=== PATIENT | female | born 1995 | race Caucasian/White ===

== ENCOUNTER 2019-01-31 11:37 | Emergency (ER) | payer MEDICAID ==
[2019-01-31] MEDS ORDERED: HYDROCODONE/APAP 10/325 TAB ONE (12:35)
[2019-01-31] MEDS ORDERED: TETANUS & DIPHTHERIA TOX,ADULT 0.5 ML VIAL ONE (12:50)
[2019-01-31] MEDS ORDERED: LIDOCAINE 1% 20 ML MDV ONE (13:26)
[2019-01-31] MEDS ORDERED: ONDANSETRON 4 MG (ODT) TAB ONE (13:34)
--- NOTE | 2019-01-31 14:10 | RAD REPORT ---
EXAM DESCRIPTION: RAD - Wrist Left 2 View - 01/31/2019 1:21 pm CLINICAL HISTORY: Laceration, left wrist pain COMPARISON: None. FINDINGS: No fracture or acute bony finding. No air or foreign body in the soft tissues.
--- NOTE | 2019-01-31 14:17 | ER ---
Nurse's Notes [facility] Name: Stephanie South Age: 23 yrs Sex: Female : 1995 Arrival Date: 01/31/2019 Time: 11:40 Bed 23 Private MD: Diagnosis: Superficial laceration of left wrist Presentation: 01/31 11:44 Presenting complaint: Patient states: 1.5 inch laceration to L wrist sustained while ss washing glass dish. No active bleeding noted at this time. Transition of care: patient was not received from another setting of care. Complicating Factors: There are no complicating factors for this patient. Onset of symptoms was January 31, 2019. Risk Assessment: Do you want to hurt yourself or someone else? Patient reports no desire to harm self or others. Initial Sepsis Screen: Does the patient meet any 2 criteria? No. Patient's initial sepsis screen is negative. Does the patient have a suspected source of infection? No. Patient's initial sepsis screen is negative. Care prior to arrival: pressure dressing placed. 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 - Social history:: Smoking status: Patient/guardian denies using tobacco. - Family history:: not pertinent. - Ebola Screening: : Patient denies exposure to infectious person Patient denies travel to an Ebola-affected area in the 21 days before illness onset. - Hospitalizations: : No recent hospitalization is reported. Screenin:47 Abuse screen: Denies threats or abuse. Denies injuries from another. Nutritional ss screening: No deficits noted. Tuberculosis screening: Never had TB. Fall Risk None identified. Assessment: 11:47 General: Appears uncomfortable, Behavior is cooperative, anxious, Denies fever, feeling ss ill. Pain: Complains of pain in left wrist Pain currently is 7 out of 10 on a pain scale. Quality of pain is described as tender, Pain began 30 min ago. Is continuous. Neuro: Level of Consciousness is awake, alert, obeys commands, Oriented to person, place, time, situation. Cardiovascular: Capillary refill < 3 seconds in bilateral fingers Patient's skin is warm and dry. Pulses are palpable in right radial artery and left radial artery. Respiratory: Airway is patent Respiratory effort is even, unlabored, Respiratory pattern is regular, symmetrical. GI: No deficits noted. EENT: Nares are clear. Derm: Skin is intact, is healthy with good turgor, Skin is dry, Skin is pink, warm \T\ dry. normal. Musculoskeletal: Circulation, motion, and sensation intact. Range of motion: intact in all extremities, Swelling absent. Injury Description: Laceration sustained to left wrist is 2.6 to 7.5 cm long, was sustained less than 30 minutes ago. Vital Signs: 11:45 BP 110 / 59; Pulse 75; Resp 14; Temp 98.4(TE); Pulse Ox 99% on R/A; Weight 52.16 kg; ss Height 4 ft. 11 in. (149.86 cm); 14:22 BP 123 / 78; Pulse 85; Resp 18; Temp 98; Pulse Ox 100% on R/A; mg2 11:45 Body Mass Index 23.23 (52.16 kg, 149.86 cm) ED Course: 11:40 Patient arrived in ED. aa5 11:41 Alfie Baker MD is Attending Physician. rn 11:43 Erinn Ware, BRITTA is Primary Nurse. 11:45 Triage completed. ss 11:45 Arm band placed on right wrist. ss 11:47 Patient has correct armband on for positive identification. Bed in low position. Call ss light in reach. 13:21 XRAY Wrist LEFT 2 view In Process Unspecified. EDMS 13:52 Assist provider with laceration repair on left wrist that was between 2.6 to 7.5 cm mg2 using sutures. 14:00 Assist provider with laceration repair on left wrist that was between 2.6 to 7.5 cm mg2 using sutures. Set up tray. Performed by Jude Harris NP Patient tolerated well. Patient did not have IV access during this emergency room visit. 14:10 Dressings: Kerlix X 1; left hand and left wrist non-adherent dressing x 1 left hand and jp3 left wrist. Wound care: to laceration located on left hand and left wrist was cleaned with Rivka irrigated with normal saline, dressed with Neosporin, Patient tolerated well. Administered Medications: 12:39 Drug: [place] 10 mg-325 mg 1 tabs Route: PO; mg2 13:34 Drug: Tetanus-Diphtheria Toxoid Adult 0.5 ml {Microsoft Bi Developer: Zoop. Exp: mg2 08/16/2020. Lot #: [id number]. } Route: IM; Site: right deltoid; 13:34 Drug: Lidocaine (1 %) 5 ml {Note: given by the provider.} Volume: 5 ml; Route: mg2 Infiltration; 13:35 Drug: Zofran 4 mg Route: PO; mg2 Outcome: 14:17 Discharge ordered by . rn 14:22 Discharged to home ambulatory, with family. mg2 14:22 Condition: stable 14:22 Discharge instructions given to patient, family, Instructed on discharge instructions, follow up and referral plans. wound care, Demonstrated understanding of instructions, follow-up care, wound care. 14:24 Patient left the ED. mg2 Signatures: Dispatcher [employer] EDMS Alfie Baker MD MD rn Calderon, Audri RN RN aa5 Erinn Ware RN RN ss Rome Garibay RN RN mg2 Payam Laurent jp3
--- NOTE | 2019-01-31 14:18 | EDPHYS ---
Physician Documentation [facility] Name: Stephanie South Age: 23 yrs Sex: Female : 1995 Arrival Date: 01/31/2019 Time: 11:40 Bed 23 Private MD: ED Physician Alfie Baker HPI: 01/31 11:43 This 23 yrs old Female presents to ER via Unassigned with complaints of rn laceration left wrist. 11:43 The patient has a laceration occurred at home, and there are no complicating factors. rn The laceration(s) is(are) located on the left wrist. Onset: The symptoms/episode began/occurred just prior to arrival. The patient has not experienced similar symptoms in the past. Reports washing dishes, accidentally cut left wrist with glass, does not feel like anything in wound, reports pain with movement. Unknown tetanus.. 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 - Social history:: Smoking status: Patient/guardian denies using tobacco. - Family history:: not pertinent. - Ebola Screening: : Patient denies exposure to infectious person Patient denies travel to an Ebola-affected area in the 21 days before illness onset. - Hospitalizations: : No recent hospitalization is reported. ROS: 11:43 Constitutional: Negative for fever, chills, and weight loss, MS/Extremity: + laceration rn left wrist Neuro: Negative for weakness, numbness, tingling Exam: 11:43 Constitutional: This is a well developed, well nourished patient who is awake, alert, rn and in no acute distress. On phone when I arrive, sitting upright. Skin: Warm, dry, 3 cm perpendicular laceration left wrist, superficial. MS/ Extremity: Pulses equal, no cyanosis. Neurovascular intact. Initially had difficulty extending fingers, eventually after coaching and reassurance, able to fully extend fingers and flex fingers, no evidence of tendon disruption, fascia appears intact. No active bleeding. Vital Signs: 11:45 BP 110 / 59; Pulse 75; Resp 14; Temp 98.4(TE); Pulse Ox 99% on R/A; Weight 52.16 kg; ss Height 4 ft. 11 in. (149.86 cm); 14:22 BP 123 / 78; Pulse 85; Resp 18; Temp 98; Pulse Ox 100% on R/A; mg2 11:45 Body Mass Index 23.23 (52.16 kg, 149.86 cm) ss Laceration: 13:56 Wound Repair of 4cm ( 1.6in ) subcutaneous laceration to palmar aspect of left forearm. pm1 Linear shaped.. Distal neuro/vascular/tendon intact. Anesthesia: Local anesthetic administered with 4 mls of 1% lidocaine. Wound prep: Extensive cleansing with hibiclenz by me, Wound irrigation with saline, Wound explored extensively, Copious irrigation. Skin closed with 6 4-0 Prolene using simple sutures and sterile technique. Dressed with Neosporin, 4x4's. Patient tolerated well. MDM: 11:41 Patient medically screened. rn 14:16 Differential diagnosis: superficial laceration. Data reviewed: vital signs, nurses rn notes, radiologic studies, plain films, and as a result, I will discharge patient. Counseling: I had a detailed discussion with the patient and/or guardian regarding: the historical points, exam findings, and any diagnostic results supporting the discharge/admit diagnosis, radiology results, the need for outpatient follow up, to return to the emergency department if symptoms worsen or persist or if there are any questions or concerns that arise at home. Response to treatment: the patient's symptoms have markedly improved after treatment, and as a result, I will discharge patient. Special discussion: I discussed with the patient/guardian in detail that at this point there is no indication for admission to the hospital. It is understood, however, that if the symptoms persist or worsen the patient needs to return immediately for re-evaluation. 01/31 11:42 Order name: XRAY Wrist LEFT 2 view; Complete Time: 14:13 rn 01/31 12:57 Order name: Prolene, Sutures; Complete Time: 13:21 pm1 01/31 12:57 Order name: Dressing - Wound; Complete Time: 13:21 pm1 01/31 12:57 Order name: Gloves, Sterile; Complete Time: 13:21 pm1 01/31 12:57 Order name: Setup Suture Tray; Complete Time: 13:21 pm1 Administered Medications: 12:39 Drug: [place] 10 mg-325 mg 1 tabs Route: PO; mg2 13:34 Drug: Tetanus-Diphtheria Toxoid Adult 0.5 ml {Supervisor Bottle House Cleaners: [employer]. Exp: mg2 08/16/2020. Lot #: [id number]. } Route: IM; Site: right deltoid; 13:34 Drug: Lidocaine (1 %) 5 ml {Note: given by the provider.} Volume: 5 ml; Route: mg2 Infiltration; 13:35 Drug: Zofran 4 mg Route: PO; mg2 Disposition: 16:07 Co-signature as Attending Physician, Alfie Baker MD. rn Disposition: 01/31/19 14:17 Discharged to Home. Impression: Superficial laceration of left wrist. - Condition is Stable. - Discharge Instructions: Laceration Care, Adult. - Medication Reconciliation Form, Thank You Letter, Antibiotic Education, Prescription Opioid Use form. - Follow up: Emergency Department; When: 14 days; Reason: Staple/Suture removal. - Problem is new. - Symptoms have improved. Signatures: Dispatcher [employer] EDMS Alfie Baker MD MD rn Smirch, Shelby, RN RN ss Jude Harris, ANNELISE HAND TRIMMER pm1 Rome Garibay RN RN mg2 Corrections: (The following items were deleted from the chart) 14:24 14:17 01/31/2019 14:17 Discharged to Home. Impression: Superficial laceration of left mg2 wrist. Condition is Stable. Forms are Medication Reconciliation Form, Thank You Letter, Antibiotic Education, Prescription Opioid Use. Follow up: Emergency Department; When: 14 days; Reason: Staple/Suture removal. Problem is new. Symptoms have improved. rn
[2019-01-31 15:04] VITALS: BP 123/78; TEMP 98; O2SAT 100
== END 2019-01-31 14:24 | disposition home or self-care (01) ==
LOC: ER 11:37
PROC: 0JQH0ZZ Repair Left Lower Arm Subcutaneous Tissue and Fascia, Open Approach (ICD-10-PCS; principal; 2019-01-31)
DX: S61.512A Laceration without foreign body of left wrist, initial encounter (principal); W25.XXXA Contact with sharp glass, initial encounter; Y93.G1 Activity, food preparation and clean up; Y92.000 Kitchen of unspecified non-institutional (private) residence as the place of occurrence of the external cause; Z23 Encounter for immunization
CPT/HCPCS: 90471; 90714; 99284

== ENCOUNTER 2019-02-16 10:26 | Emergency (ER) | payer MEDICAID ==
--- OUTSIDE RECORDS SUMMARY | 2019-02-16 10:27 | XMS REPORT ---
:1995 [facility] Address [address] [place] [address] Dr. Mcdonald [address] [place] [id number] Care Team Providers Name Role Phone Unavailable Unavailable Unavailable Problems This patient has no known problems. Allergies, Adverse Reactions, Alerts This patient has no known allergies or adverse reactions. Medications This patient has no known medications.
--- NOTE | 2019-02-16 10:55 | EDPHYS ---
Physician Documentation [facility] Name: Stephanie South Age: 23 yrs Sex: Female : 1995 Arrival Date: 02/16/2019 Time: 10:29 Bed 11 Private MD: ED Physician Edvin Gomez HPI: 02/16 10:52 This 23 yrs old Female presents to ER via Ambulatory with complaints of pm1 Suture Removal. 10:52 The patient has sutures on the left wrist. Previous treatment: The patient was pm1 initially treated on January 31, 2019, the care was rendered at [facility], Treatment type: The patient's original treatment included sutures. Sutures/fortino progress: The patient has no c/o's. The wound is well-healing with no redness, swelling, discharge, or dehiscence reported. The patient has not experienced similar symptoms in the past. Laceration to left wrist when cleaning dishes. 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 - Social history:: Smoking status: Patient/guardian denies using tobacco. - Ebola Screening: : Patient negative for fever greater than or equal to 101.5 degrees Fahrenheit, and additional compatible Ebola Virus Disease symptoms Patient denies exposure to infectious person Patient denies travel to an Ebola-affected area in the 21 days before illness onset No symptoms or risks identified at this time. ROS: 10:52 Constitutional: Negative for fever, chills, and weight loss, Cardiovascular: Negative pm1 for chest pain, palpitations, and edema, Respiratory: Negative for shortness of breath, cough, wheezing, and pleuritic chest pain, Back: Negative for injury and pain, MS/Extremity: Negative for injury and deformity, Skin: Negative for injury, rash, and discoloration, Neuro: Negative for headache, weakness, numbness, tingling, and seizure. 10:52 All other systems are negative. Exam: 10:52 Constitutional: This is a well developed, well nourished patient who is awake, alert, pm1 and in no acute distress. Head/Face: Normocephalic, atraumatic. Neck: Trachea midline, no thyromegaly or masses palpated, and no cervical lymphadenopathy. Supple, full range of motion without nuchal rigidity, or vertebral point tenderness. No Meningismus. Chest/axilla: Normal chest wall appearance and motion. Nontender with no deformity. No lesions are appreciated. Cardiovascular: Regular rate and rhythm with a normal S1 and S2. No gallops, murmurs, or rubs. Normal PMI, no JVD. No pulse deficits. Respiratory: Lungs have equal breath sounds bilaterally, clear to auscultation and percussion. No rales, rhonchi or wheezes noted. No increased work of breathing, no retractions or nasal flaring. Back: No spinal tenderness. No costovertebral tenderness. Full range of motion. 10:52 Skin: Wound recheck: Suture laceration closure: the wound is healing well, the edges are well approximated, no evidence of dehiscence, no drainage, no erythema, no swelling. Vital Signs: 10:44 BP 104 / 79; Pulse 67; Resp 16; Temp 98.0; Pulse Ox 97% on R/A; iw Procedures: 10:52 Suture/Staple removal: Removed 6 sutures, from left wrist, site appears well healed, pm1 Patient tolerated well, steri-strips applied to wound closure after removal of sutures. MDM: 10:38 Patient medically screened. pm1 10:52 Data reviewed: vital signs. Data interpreted: Pulse oximetry: on room air is 97 %. pm1 Interpretation: normal. 10:52 Counseling: I had a detailed discussion with the patient and/or guardian regarding: the pm1 historical points, exam findings, and any diagnostic results supporting the discharge/admit diagnosis, the need for outpatient follow up, to return to the emergency department if symptoms worsen or persist or if there are any questions or concerns that arise at home. Administered Medications: No medications were administered Disposition: 11:25 Co-signature as Attending Physician, Edvin Gomez MD I agree with the assessment and kdr plan of care. Disposition: 02/16/19 10:55 Discharged to Home. Impression: Encounter for removal of sutures. - Condition is Stable. - Discharge Instructions: Suture Removal, Care After. - Medication Reconciliation Form, Thank You Letter, Antibiotic Education, Prescription Opioid Use form. - Follow up: Emergency Department; When: As needed; Reason: Worsening of condition. Follow up: Private Physician; When: As needed; Reason: Recheck today's complaints, Continuance of care, Re-evaluation by your physician. - Problem is new. - Symptoms have improved. Signatures: Edvin Gomez MD MD kdr Gabriela Denton RN RN iw Jude Harris NP CUT AND COVER LINE WORKER pm1 Corrections: (The following items were deleted from the chart) 11:01 10:55 02/16/2019 10:55 Discharged to Home. Impression: Encounter for removal of iw sutures. Condition is Stable. Forms are Medication Reconciliation Form, Thank You Letter, Antibiotic Education, Prescription Opioid Use. Follow up: Emergency Department; When: As needed; Reason: Worsening of condition. Follow up: Private Physician; When: As needed; Reason: Recheck today's complaints, Continuance of care, Re-evaluation by your physician. Problem is new. Symptoms have improved. pm1
--- NOTE | 2019-02-16 10:55 | ER ---
Nurse's Notes [facility] Name: Stephanie South Age: 23 yrs Sex: Female : 1995 Arrival Date: 02/16/2019 Time: 10:29 Bed 11 Private MD: Diagnosis: Encounter for removal of sutures Presentation: 02/16 10:43 Presenting complaint: Patient states: sutures placed almost 2 weeks ago to left wrist, iw needs to be removed. Transition of care: patient was not received from another setting of care. Onset of symptoms was February 16, 2019. Risk Assessment: Do you want to hurt yourself or someone else? Patient reports no desire to harm self or others. Initial Sepsis Screen: Does the patient meet any 2 criteria? No. Patient's initial sepsis screen is negative. Does the patient have a suspected source of infection? No. Patient's initial sepsis screen is negative. Care prior to arrival: None. 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 - Social history:: Smoking status: Patient/guardian denies using tobacco. - Ebola Screening: : Patient negative for fever greater than or equal to 101.5 degrees Fahrenheit, and additional compatible Ebola Virus Disease symptoms Patient denies exposure to infectious person Patient denies travel to an Ebola-affected area in the 21 days before illness onset No symptoms or risks identified at this time. Screenin:45 Abuse screen: Denies threats or abuse. Denies injuries from another. Nutritional iw screening: No deficits noted. Tuberculosis screening: No symptoms or risk factors identified. Fall Risk None identified. Assessment: 10:45 General: Appears in no apparent distress. Behavior is calm, cooperative. Pain: Denies iw pain. Neuro: Level of Consciousness is awake, alert, obeys commands, Oriented to person, place, time, situation, Moves all extremities. Full function. Cardiovascular: Patient's skin is warm and dry. Respiratory: Respiratory effort is even, unlabored. Derm: Skin is intact, is healthy with good turgor. Vital Signs: 10:44 BP 104 / 79; Pulse 67; Resp 16; Temp 98.0; Pulse Ox 97% on R/A; iw ED Course: 10:29 Patient arrived in ED. mr 10:35 Gabriela Denton, BRITTA is Primary Nurse. iw 10:38 Jude Harris NP is PHCP. pm1 10:38 Edvin Gomez MD is Attending Physician. pm1 10:44 Triage completed. iw 10:45 Arm band placed on. iw 10:45 No provider procedures requiring assistance completed. Patient did not have IV access iw during this emergency room visit. 11:00 Patient has correct armband on for positive identification. iw Administered Medications: No medications were administered Outcome: 10:55 Discharge ordered by . pm1 11:00 Discharged to home ambulatory. iw 11:00 Condition: good 11:00 Discharge instructions given to patient, Instructed on discharge instructions, follow up and referral plans. wound care, Demonstrated understanding of instructions, follow-up care, wound care. 11:01 Patient left the ED. iw Signatures: Doris Delgado mr Gabriela Denton, BRITTA RN iw Jude Harris NP MACHINE STRAW HAT PRESSER pm1
[2019-02-16 12:21] VITALS: BP 104/79; TEMP 98; O2SAT 97
== END 2019-02-16 11:01 | disposition home or self-care (01) ==
LOC: ER 10:26
DX: Z48.02 Encounter for removal of sutures (principal)
CPT/HCPCS: 99281

== ENCOUNTER 2019-09-15 14:09 | Emergency (ER) | payer MEDICAID, OTHER ==
--- OUTSIDE RECORDS SUMMARY | 2019-09-15 14:12 | XMS REPORT | Continuity of Care Document ---
:1995 Author Organization [facility] t Address [address] [place] [address] Care Team Providers Name Role Phone Doctor Unassigned, Name Attending Clinician Unavailable 5, [facility] Us Room Attending Clinician Unavailable Jordan Young Attending Clinician Problems This patient has no known problems. Allergies, Adverse Reactions, Alerts This patient has no known allergies or adverse reactions. Medications This patient has no known medications. Procedures This patient has no known procedures. 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
--- OUTSIDE RECORDS SUMMARY | 2019-09-15 14:12 | XMS REPORT | Summary of Care ---
:1995 Author Organization [facility] - Health Address [address] [place] [address] Care Team Providers Name Role Phone Kimberly Insurance [employer] Jordan Cuellar VERONICA Primary Care Provider Encounter Details Date Type Department Care Team Description 06/19/2019 Orders Only [facility] Doctor Unassigned, No [address] [facility] [place] [address] [address] [place] [address] Allergies No Known Allergiesdocumented as of this encounter (statuses as of 06/20/2019) Medications Medication Sig Dispensed Refills Start Date End Date Status vit Take 1 Packet by 30 Each 6 04/21/2017 Active 17-khoj-hdjsi-dha mouth daily. (SELECT-OB + DHA) 29 mg iron-1 mg -250 mg combo packIndications: Supervision of high risk , antepartum sucralfate (CARAFATE) 1 Take 1 tablet by 30 tablet 0 8 Active gram tabletIndications: mouth before Heartburn in meals and at in third trimester bedtime. PNV 67-iron ps-folate Take 1 tablet by 30 capsule 1 09/12/2017 Active no.1-dha (VITAFOL mouth daily. ULTRA) 29 mg iron- 1 mg-200 mg Cap ferrous sulfate 325 mg Take 1 tablet by 90 tablet 6 09/20/2017 Active (65 mg iron) mouth 3 (three) tabletIndications: times daily with Anemia of mother in meals. , antepartum vitamin w/FA Take 1 tablet by 100 tablet 3 10/08/2017 Active tablet mouth daily. docusate calcium 240 mg Take 1 capsule 60 capsule 1 10/08/2017 Active capsule by mouth once daily as needed for Constipation. ferrous sulfate 325 mg Take 1 tablet by 30 tablet 2 10/08/2017 Active (65 mg iron) tablet mouth daily. ibuprofen 600 mg tablet Take 1 tablet by 60 tablet 1 8 Active mouth every 6 (six) hours as needed for Pain (scale 1-3) or Pain (scale 4-6) (Pain). Take with food or milk. HYDROcodone-acetaminoph Take 1 tablet by 25 tablet 0 8 Active en 5-325 mg tablet mouth every 6 (six) hours as needed for Pain (scale 4-6) or Pain (scale 7-10). multivitamin Take 1 tablet by 90 tablet 3 03/22/2019 Active ( VITAMIN) mouth daily. tabletIndications: Supervision of high risk in first trimester ondansetron (ZOFRAN Take 1 tablet by 14 tablet 0 04/10/2019 Active ODT) 4 mg mouth every 8 disintegrating (eight) hours as tabletIndications: needed for Abdominal pain Nausea and affecting Vomiting (N/V). documented as of this encounter (statuses as of 06/20/2019) Active Problems Problem Noted Date Multiparity 03/22/2019 Supervision of high-risk 03/22/2019 History of pre-eclampsia 10/06/2017 History of induced hypertension 03/24/2017 History of depression 03/24/2017 with history of section, antepartum 03/24/2017 Overview: Due to failed IOL, low transverse incision x2 Estimated Date of Delivery Comments Yes 11/10/2019 Based on Ultrasound documented as of this encounter (statuses as of 06/20/2019) Resolved Problems Problem Noted Date Resolved Date 37 weeks gestation of 10/06/2017 03/22/19 20 Elevated BP without diagnosis of hypertension 10/06/2017 10/06/2017 Liveborn infant, of uriostegui , born in hospital by 10/06/2017 03/22/2019 delivery Supervision of high risk in third trimester 201703/22/2019 Overweight (BMI 25.0-29.9) 09/20/2017 03/22/2019 Anemia of mother in , antepartum 09/20/2017 03/22/2019 Heartburn in in third trimester 09/04/2017 03/22/2019 Pelvic cramping in antepartum period 04/21/201711/2017 Supervision of high risk , antepartum 03/24/2017 09/20/2017 PIH ( induced hypertension), third trimester 201503/24/2017 Failed induction of labor 10/28/2015 03/24/2017 38 weeks gestation of 10/26/2015 03/24/19 18 Elevated blood pressure affecting in third 016 03/24/2017 trimester, antepartum documented as of this encounter (statuses as of 06/20/2019) Immunizations Name Administration Dates Next Due Tdap 08/04/2017 documented as of this encounter Social History Tobacco Use Types Packs/Day Years Used Date Former Smoker Cigarettes 12 03/24/2002 - 0 03/24/2014 Smokeless Tobacco: Never Used Alcohol Use Drinks/Week oz/Week Comments No Estimated Date of Delivery Comments Yes 11/10/2019 Based on Ultrasound Sex Assigned at Date Recorded Not on file Job Start Date Occupation Industry Not on file Not on file Not on file Travel History Travel Start Travel End No recent travel history available. documented as of this encounter Last Filed Vital Signs Not on filedocumented in this encounter Plan of Treatment Health Maintenance Due Date Last Done Comments HPV VACCINES (1 - Female 2-dose 03/12/2020 Postponed from 2005 series) ( or Lucrecia astfeeding) INFLUENZA VACCINE (#1) 2020 Postponed from 11/11/2018 (Refused) PAP SMEAR 03/24/2020 03/24/2017 DTaP,Tdap,and Td Vaccines (2 - 08/05/2027 08/04/2017 Td) PNEUMOCOCCAL 0-64 YEARS COMBINED Aged Out No longer eligible based on SERIES patient's age to complete this topic documented as of this encounter Procedures Procedure Name Priority Date/Time Associated Diagnosis Comme nts AUTHORIZATION FOR RELEASE Routine 06/19/2019 12:01 AM OF PHI CDT documented in this encounter Results Not on filedocumented in this encounter Insurance Payer Benefit Plan / Subscriber ID Effective Phone Address T e Group Dates JILLIAN WALSH xxxxxxxxx 2019-Prese [address] [place] [id number] [place] MED[place], [place] documented as of this encounter Advance Directives Name Relationship Healthcare Agent Communication Relationship Blanche Lopez Mother Primary healthcare agent
[2019-09-15 14:43] LABS: Absolute Lymphocytes (CBC) 1.6 K/uL (0.7-4.9); Basophils % 0.5 % (0-1.3); Hematocrit 26.8 % (36.0-45.0); Lymphocytes % 21.6 % (15.3-44.8); MPV 8.8 fL (7.6-11.3); RBC Red Blood Cell Count 3.19 M/uL (3.86-4.86)
[2019-09-15 15:01] LABS: BUN Blood Urea Nitrogen 6 mg/dL (7-18); Bicarbonate 22 mmol/L (21-32); Glucose Level 106 mg/dL (74-106); Potassium 3.4 mmol/L (3.5-5.1); Sodium Level 140 mmol/L (136-145); Troponin (Emerg Dept Use Only) < 0.02 ng/mL (0.0-0.045)
[2019-09-15 15:08] LABS: Urine Blood NEGATIVE (NEG); Urine Glucose NEGATIVE (NEG); Urine Protein NEGATIVE (NEG); Urine Specific Gravity >1.030 (1.005-1.030); Urine pH 6.5 (5.0-7.0)
--- NOTE | 2019-09-15 16:01 | ER ---
Nurse's Notes [facility] Name: Stephanie South Age: 24 yrs Sex: Female : 1995 Arrival Date: 09/15/2019 Time: 14:10 Bed 4 Private MD: Diagnosis: Chest pain, unspecified Presentation: 09/14 14:10 Chief complaint: EMS states: Pt approx 7 months , c/o chest pain over the last ph few days that comes and goes, today started at around 1100 and did not go away, also reports slight SOB, hx of HTN during pregnancies, BP normal at 106 systolic, HR 104 sinus tach. Coronavirus screen: Patient denies a cough. Patient denies shortness of breath or difficulty breathing. Patient denies measured and/or subjective temperature greater than 100.4F prior to today's visit. Patient denies travel on a cruise ship or to a country the [facility] currently lists as an affected area. Patient denies contact with known and/or suspected case of COVID-19. Ebola Screen: No symptoms or risks identified at this time. Initial Sepsis Screen: Does the patient meet any 2 criteria? No. Patient's initial sepsis screen is negative. Does the patient have a suspected source of infection? No. Patient's initial sepsis screen is negative. Risk Assessment: Do you want to hurt yourself or someone else? Patient reports no desire to harm self or others. Onset of symptoms was September 15, 2019. 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 - Social history:: Smoking status: Patient denies any tobacco usage or history of. Screenin:15 Abuse screen: Denies threats or abuse. Denies injuries from another. Nutritional ph screening: No deficits noted. Tuberculosis screening: No symptoms or risk factors identified. Fall Risk None identified. Assessment: 15:12 General: Appears in no apparent distress. comfortable, well groomed, Behavior is calm, ph cooperative, appropriate for age, Denies fever, feeling ill. Pain: Complains of pain in mid-sternal area Pain does not radiate. Pain began 2-3 days ago. Is intermittent. Neuro: Level of Consciousness is awake, alert, obeys commands, Oriented to person, place, time, Appropriate for age. Cardiovascular: Reports chest pain, shortness of breath, Denies lightheadedness, nausea, palpitations, vomiting. Respiratory: Reports shortness of breath when lying down Airway is patent Respiratory effort is even, unlabored, Respiratory pattern is regular, symmetrical. GI: Abdomen is round Patient currently denies abdominal pain, nausea, vomiting. Derm: Skin is intact, is healthy with good turgor, Skin is pink, warm \T\ dry. 16:15 Reassessment: Patient appears in no apparent distress at this time. Patient is alert, ca1 oriented x 3, equal unlabored respirations, skin warm/dry/pink. Vital Signs: 14:10 BP 110 / 68; Pulse 97; Resp 18; Pulse Ox 98% on R/A; ph 15:17 BP 95 / 54; Pulse 86; Resp 18; Pulse Ox 98% on R/A; ph 16:06 BP 92 / 54; Pulse 78; Resp 15 S; Pulse Ox 95% on R/A; ca1 Vitals: 14:42 Heart Tones 134. ca1 ED Course: 14:10 Patient arrived in ED. ph 14:12 Jude Harris NP is PHCP. pm1 14:12 Nina Velasco MD is Attending Physician. pm1 14:14 Triage completed. ph 14:15 Arm band placed on Patient placed in an exam room, on a stretcher, on international trade manager, ph on pulse oximetry. EKG completed in triage. Results shown to MD. 14:15 Patient has correct armband on for positive identification. Placed in gown. Bed in low ph position. Call light in reach. Side rails up X 1. tire mold tester on. Pulse ox on. NIBP on. Door closed. Warm blanket given. 14:16 Patient maintains SpO2 saturation greater than 95% on room air. ph 14:27 Maintain EMS IV. Dressing intact. Good blood return noted. Site clean \T\ dry. Gauge \T\ ca 1 site: g20 LAC. 14:34 Initial lab(s) drawn, by me, sent to lab. ca1 14:44 Yasmine Farah, RN is Primary Nurse. ph 16:10 No provider procedures requiring assistance completed. IV discontinued, intact, ca1 bleeding controlled, No redness/swelling at site. Pressure dressing applied. Administered Medications: No medications were administered Outcome: 16:00 Discharge ordered by . pm1 16:15 Discharged to home ambulatory. ca1 16:15 Condition: stable 16:15 Discharge instructions given to patient, Instructed on discharge instructions, follow up and referral plans. Demonstrated understanding of instructions, follow-up care. 16:15 Patient left the ED. ca1 Signatures: Yasmine Farah, RN RN ph Jude Harris, FUR FINISHER FUR FINISHER pm1 Carie Handy RN RN ca1
--- NOTE | 2019-09-15 16:01 | EDPHYS ---
Physician Documentation [facility] Name: Stephanie South Age: 24 yrs Sex: Female : 1995 Arrival Date: 09/15/2019 Time: 14:10 Bed 4 Private MD: ED Physician Nina Velasco HPI: 09/14 14:47 This 24 yrs old Female presents to ER via EMS with complaints of Chest Pain. pm1 14:47 The patient or guardian reports chest pain that is located primarily in the mid-sternal pm1 area. The pain does not radiate. Associated signs and symptoms: The patient has no apparent associated signs or symptoms, Pertinent negatives: abdominal pain, cough, diaphoresis, dizziness, headache, nausea, shortness of breath, vomiting. The chest pain is described as sharp. Duration: The patient or guardian reports multiple episodes, that have now resolved. Modifying factors: The symptoms are alleviated by not taking in deep breaths when present and changing positions when lying down. the symptoms are aggravated by deep breath, lying down flat. Severity of pain: in the emergency department the pain has resolved. EMS care prior to arrival includes: aspirin, 324 mg. Patient is 7 months . A2. 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 - Social history:: Smoking status: Patient denies any tobacco usage or history of. ROS: 14:47 Constitutional: Negative for fever, chills, and weight loss, Eyes: Negative for injury, pm1 pain, redness, and discharge, ENT: Negative for injury, pain, and discharge, Neck: Negative for injury, pain, and swelling. 14:47 Respiratory: Negative for shortness of breath, cough, wheezing, and pleuritic chest pain, Abdomen/GI: Negative for abdominal pain, nausea, vomiting, diarrhea, and constipation, Back: Negative for injury and pain, : Negative for injury, bleeding, discharge, and swelling, MS/Extremity: Negative for injury and deformity, Skin: Negative for injury, rash, and discoloration, Neuro: Negative for headache, weakness, numbness, tingling, and seizure. 14:47 Cardiovascular: Positive for chest pain, Negative for edema, palpitations. Exam: 14:47 Constitutional: This is a well developed, well nourished patient who is awake, alert, pm1 and in no acute distress. Head/Face: Normocephalic, atraumatic. Chest/axilla: Normal chest wall appearance and motion. Nontender with no deformity. No lesions are appreciated. Cardiovascular: Regular rate and rhythm with a normal S1 and S2. No gallops, murmurs, or rubs. Normal PMI, no JVD. No pulse deficits. Respiratory: Lungs have equal breath sounds bilaterally, clear to auscultation and percussion. No rales, rhonchi or wheezes noted. No increased work of breathing, no retractions or nasal flaring. 14:47 Back: No spinal tenderness. No costovertebral tenderness. Full range of motion. Skin: Warm, dry with normal turgor. Normal color with no rashes, no lesions, and no evidence of cellulitis. MS/ Extremity: Pulses equal, no cyanosis. Neurovascular intact. Full, normal range of motion. 14:47 Abdomen/GI: Inspection: gravid appearance, is noted, Palpation: abdomen is soft and non-tender, in all quadrants. 14:47 Neuro: Exam negative for acute changes, Orientation: is normal, Motor: is normal, moves all fours. Vital Signs: 14:10 BP 110 / 68; Pulse 97; Resp 18; Pulse Ox 98% on R/A; ph 15:17 BP 95 / 54; Pulse 86; Resp 18; Pulse Ox 98% on R/A; ph 16:06 BP 92 / 54; Pulse 78; Resp 15 S; Pulse Ox 95% on R/A; ca1 MDM: 14:12 Patient medically screened. pm1 14:56 Data reviewed: vital signs. Data interpreted: Pulse oximetry: on room air is 98 %. pm1 Interpretation: normal. 15:26 ED course: Patient with known history of anemia. Does not appear to be iron deficiency pm1 related but likely from . MCV and MCHC are WNL. Patient had labs drawn last week by ob and recommended keeping appointment for follow up next week. 15:59 Counseling: I had a detailed discussion with the patient and/or guardian regarding: the pm1 historical points, exam findings, and any diagnostic results supporting the discharge/admit diagnosis, lab results, the need for outpatient follow up, an OB/Gyne specialist, to return to the emergency department if symptoms worsen or persist or if there are any questions or concerns that arise at home. 09/14 14:26 Order name: Basic Metabolic Panel; Complete Time: 15:01 pm1 09/14 14:26 Order name: CBC with Diff; Complete Time: 14:56 pm1 09/14 14:26 Order name: Troponin (emerg Dept Use Only); Complete Time: 15:01 pm1 09/14 14:26 Order name: EKG; Complete Time: 14:27 pm1 09/14 14:58 Order name: Urine Dipstick--Ancillary (enter results); Complete Time: 15:17 mt 09/14 14:58 Order name: Urine --Ancillary (enter results); Complete Time: 15:17 mt 09/14 14:26 Order name: Cardiac monitoring; Complete Time: 14:27 pm1 09/14 14:26 Order name: EKG - Nurse/Tech; Complete Time: 14:27 pm09/14 14:26 Order name: IV Saline Lock; Complete Time: 14:27 pm1 09/14 14:26 Order name: Labs collected and sent; Complete Time: 14:27 pm09/14 14:26 Order name: O2 Per Protocol; Complete Time: 14:27 pm1 09/14 14:26 Order name: O2 Sat Monitoring; Complete Time: 14:27 pm09/14 14:26 Order name: Urine Dipstick-Ancillary (obtain specimen); Complete Time: 14:59 pm1 09/14 14:26 Order name: FHT's; Complete Time: 14:42 pm1 Administered Medications: No medications were administered Disposition: 09/15/19 16:00 Discharged to Home. Impression: Chest pain, unspecified. - Condition is Stable. - Discharge Instructions: Nonspecific Chest Pain. - Medication Reconciliation Form, Thank You Letter, Antibiotic Education, Prescription Opioid Use form. - Follow up: Emergency Department; When: As needed; Reason: Worsening of condition. Follow up: Private Physician; When: 2 - 3 days; Reason: Recheck today's complaints, Continuance of care, Re-evaluation by your physician. - Problem is new. - Symptoms have improved. Signatures: Dispatcher [employer] Yasmine Cox, BRITTA RN ph Jude Harris, ENERGY RISK MANAGEMENT ANALYST ENERGY RISK MANAGEMENT ANALYST pm1 Carie Handy RN RN ca1 Corrections: (The following items were deleted from the chart) 16:15 16:00 09/15/2019 16:00 Discharged to Home. Impression: Chest pain, unspecified. ca1 Condition is Stable. Forms are Medication Reconciliation Form, Thank You Letter, Antibiotic Education, Prescription Opioid Use. Follow up: Emergency Department; When: As needed; Reason: Worsening of condition. Follow up: Private Physician; When: 2 - 3 days; Reason: Recheck today's complaints, Continuance of care, Re-evaluation by your physician. Problem is new. Symptoms have improved. pm1
[2019-09-15 16:22] VITALS: BP 92/54; O2SAT 95
== END 2019-09-15 16:15 | disposition home or self-care (01) ==
LOC: ER 14:09
DX: O26.892 Other specified pregnancy related conditions, second trimester (principal); O16.2 Unspecified maternal hypertension, second trimester; Z3A.00 Weeks of gestation of pregnancy not specified
CPT/HCPCS: 36415; 80048; 81003; 81025; 84484; 85025; 93005; 99285

== ENCOUNTER 2020-10-08 03:17 | Emergency (ER) | payer OTHER ==
--- OUTSIDE RECORDS SUMMARY | 2020-10-08 03:20 | XMS REPORT | Continuity of Care Document ---
:1995 Author Organization [facility] t Address [address] [place] [address] Care Team Providers Name Role Phone Armida Gomes Attending Clinician Doctor Unassigned, Name Attending Clinician Unavailable 5, [facility] Usg Room Attending Clinician Unavailable Jordan Young Attending Clinician Payers Payer Name Policy Type Policy Number Effective Date Expiration Date S ource Problems This patient has no known problems. Allergies, Adverse Reactions, Alerts Allergy Allergy Status Severity Reaction(s) Onset Inactive Treating Comm ents Source Name Type Date Date Clinician No Known DA Active [facility] [place] Medications This patient has no known medications. Procedures This patient has no known procedures. Encounters Start End Encounter Admission Attending Care Care Encounter Source Date/Time Date/Time Type Type Clinicians Facility Department ID 2019-10-20 2019-10-20 Emergency Edvin Toro [facility] [id number] 01:36:00 02:09:00 Armida Manriquez [id number] [place] [id number] [place] [id number] 2019-06-19 2019-06-19 Orders Doctor JOSEPH [id number] 00:00:00 00:00:00 Only Unassigned, EDUARDO [id number] [facility] [id number] [id number] 2019-04-26 2019-05-07 [employer] 5, [facility] [id number] 10:50:11 09:43:02 Visit Us Room [facility] [id number] CLIN[facility] [id number] 2019-05-07 2019-05-07 Abstract [place], [facility] [id number] 00:00:00 00:00:00 Cristina Ortega DECAL TRANSFERRER [id number] [facility] [id number] MATERNAL [id number] & CHILD [address] [place] [id number] Results Test Description Test Time Test Comments Results Result Comments Source HGB HCT 2019-11-05 05:00:00 Test Item Value Reference Range Interpretation Comme nts HEMOGLOBIN (test code = HGB) 5.9 g/dL 10.7-13.9 LL RESULTS CALLED TO Favian MccarthyREAD BACK & C ONFIRMED? Y.BY JOSE JUAN 0500.Results verified by rep eat analysis HEMATOCRIT (test code = HCT) 20.6 % 32.1-42.1 L Results verified by repeat analysis AG HEPATITIS B [id number] 11:45:00 Test Item Value Reference Range Interpretation Comments AG HEPATITIS B SURFACE (test code NONREACTIVE NONREACTIVE = HBSAG) IS CONSENT FORM SIGNED FOR HIV TESTING? YAB HEPATITIS C [id number] 11:45:00 Test Item Value Reference Range Interpretation Comments AB HEPATITIS C (test code = NONREACTIVE NONREACTIVE HCVAB) SIGNAL TO CUTOFF (test code = 0.18 <0.80 N CUTOFF) IS CONSENT FORM SIGNED FOR HIV TESTING? YAB [id number] 11:45:00 Test Item Value Reference Range Interpretation Comments AB TREPONEMA (test code = TREPAB) NONREACTIVE NONREACTIVE IS CONSENT FORM SIGNED FOR HIV TESTING? YAB HIV 1 11:45:00 Test Item Value Reference Range Interpretation Comments AB HIV 1 2 (test NONREACTIVE NONREACTIVE Done by S [employer] code = [id number]) 4th Gen HIV Ag/Ab Combo Screen IS CONSENT FORM SIGNED FOR HIV TESTING? YAG HEPATITIS B [id number] 09:20:00 Test Item Value Reference Range Interpretation Comments AG HEPATITIS B SURFACE (test code NONREACTIVE NONREACTIVE = HBSAG) IS CONSENT FORM SIGNED FOR HIV TESTING? YAB HEPATITIS C [id number] 09:20:00 Test Item Value Reference Range Interpretation Comments AB HEPATITIS C (test code = HCVAB) NONREACTIVE SIGNAL TO CUTOFF (test code = CUTOFF) <0.80 IS CONSENT FORM SIGNED FOR HIV TESTING? YAB [id number] 09:20:00 Test Item Value Reference Range Interpretation Comments AB TREPONEMA (test code = TREPAB) NONREACTIVE NONREACTIVE IS CONSENT FORM SIGNED FOR HIV TESTING? YAB HIV 1 09:20:00 Test Item Value Reference Range Interpretation Comments AB HIV 1 2 (test NONREACTIVE NONREACTIVE Done by S [employer] code = [id number]) 4th Gen HIV Ag/Ab Combo Screen IS CONSENT FORM SIGNED FOR HIV TESTING? YCOMPREHENSIVE METABOLIC [id number] 06:54:00 Test Item Value Reference Range Interpretation Comments SODIUM (test code = NA) 135 mEq/L 135-145 N POTASSIUM (test code = K) 3.9 mEq/L 3.5-5.0 N CHLORIDE (test code = CL) 103 mEq/L 100-115 N CARBON DIOXIDE (test code = CO2) 23 mEq/L 22-31 N ANION GAP (test code = GAP) 12.70 10-20 N GLUCOSE (test code = GLU) 87 mg/dL 65-110 N BLOOD UREA NITROGEN (test code = 10 mg/dL 7-18 N BUN) GLOMERULAR FILTRATION RATE (test 122 ml/min >60 N code = GFR) CREATININE (test code = CREAT) 0.6 mg/dL 0.5-1.0 N TOTAL PROTEIN (test code = PROT) 5.8 gm/dL 6.3-8.2 L ALBUMIN (test code = ALB) 2.4 gm/dL 3.4-4.8 L CALCIUM (test code = CA) 7.7 mg/dL 8.4-10.2 L BILIRUBIN TOTAL (test code = 0.7 mg/dL 0.2-1.0 N BILT) SGOT/AST (test code = AST) 21 units/L 15-37 N SGPT/ALT (test code = ALT) 15 units/L 12-78 N ALKALINE PHOSPHATASE TOTAL (test 111 units/L 46-116 N code = ALKP) CBC W/AUTO [id number] 06:19:00 Test Item Value Reference Range Interpretation Comments WHITE BLOOD CELL (test code = WBC) 9.6 K/mm3 6.6-12.1 N RED BLOOD CELL (test code = RBC) 3.32 M/mm3 3.45-5.01 L HEMOGLOBIN (test code = HGB) 7.6 g/dL 10.7-13.9 L HEMATOCRIT (test code = HCT) 26.0 % 32.1-42.1 L MEAN CELL VOLUME (test code = MCV) 78 fL 84.1-94.8 L MEAN CELL HGB (test code = MCH) 22.9 pg 27-35 L MEAN CELL HGB CONCETRATION (test 29.2 gm/dL 32.2-34.1 L code = MCHC) RED CELL DISTRIBUTION WIDTH (test 16.4 % 12.4-16.5 N code = RDW) PLATELET COUNT (test code = PLT) 155 K/mm3 133-385 N MEAN PLATELET VOLUME (test code = 11.1 fl 9.1-12.7 N MPV) NEUTROPHIL % (test code = NT%) 65.8 % 56.5-79.4 N LYMPHOCYTE % (test code = LY%) 22.1 % 14.3-34.3 N MONOCYTE % (test code = MO%) 7.9 % 5.1-10.4 N EOSINOPHIL % (test code = EO%) 1.6 % 0.1-3.0 N BASOPHIL % (test code = BA%) 0.4 % 0.1-1.0 N NEUTROPHIL # (test code = NT#) 6.3 K/mm3 LYMPHOCYTE # (test code = LY#) 2.1 K/mm3 MONOCYTE # (test code = MO#) 0.8 K/mm3 EOSINOPHIL # (test code = EO#) 0.15 K/mm3 BASOPHIL # (test code = BA#) 0.0 K/mm3 RBC MORPHOLOGY REQUIRED (test code NORMAL NORMAL = RBCM) PLATELET MORPHOLOGY REQUIRED (test NORMAL NORMAL code = PLTMR) COVID 19 Asymptomatic IH [id number] 17:18:00 Test Item Value Reference Range Interpretation Comments COVID 19 NEGATIVE NEGATIVE This test has b een Asymptomatic IH AG authorize d only for the (test code = detection ofpro teins from COVNONPUIAG) SARS-CoV-2, not for any other viruses orpathogens. N egative results should be treated as presumptive andconfirmed wi th a molecular assay , if necessary for patientmanageme nt. Negative result s do not rule out COVID- 19 andshould not b e used as the sole basis for treatment orpat ient management deci sions, including infec tion controldecision s. Negative result s should be considered i n thecontext of a patient's recent exposure s, history and thepresence of clinical signs and symptoms consis tent withCOVID-19. T his test has not been FD A cleared or approved; th e test hasbeen authori zed by FDA under an Emerge ncy Use Authorization(E UA) for use by laborato olivia certified under the CLIA thatmeet the re quirements to perform mode rate, high or waivedcomple xity tests. This arnold t is authorized for use at thePoint of Car e (POC), i.e., in patien t care settingsoperati ng under a CLIA Certificat e of Waiver, Certifi dandre ofCompliance, o r Certificate of Accreditation. This test is only authori zed for the duration of thedeclaration that circumstances e xist justifying theauthorizatio n of emergency use o f in vitro diagnostic test sfor detection and/o r diagnosis of CO VID-19 under Zpanzwy85 4(b)(1) of the Act, 21 U.S .C. 360bbb-3(b)(1), unless theauthorizatio n is terminated or r evoked sooner. AG HEPATITIS B [id number] 15:41:00 Test Item Value Reference Range Interpretation Comments AG HEPATITIS B SURFACE (test code NONREACTIVE NONREACTIVE = HBSAG) : *IS CONSENT FORM SIGNED FOR HIV TESTING? YAB [id number] 15:41:00 Test Item Value Reference Range Interpretation Comments AB TREPONEMA (test code = TREPAB) NONREACTIVE NONREACTIVE : *IS CONSENT FORM SIGNED FOR HIV TESTING? YAB HIV 1 15:41:00 Test Item Value Reference Range Interpretation Comments AB HIV 1 2 (test NONREACTIVE NONREACTIVE Done by Radha Padron code = [id number]) 4th Gen HIV Ag/Ab Combo Screen : *IS CONSENT FORM SIGNED FOR HIV TESTING? YAG HEPATITIS B [id number] 15:00:00 Test Item Value Reference Range Interpretation Comments AG HEPATITIS B SURFACE (test code NONREACTIVE NONREACTIVE = HBSAG) : *IS CONSENT FORM SIGNED FOR HIV TESTING? YAB [id number] 15:00:00 Test Item Value Reference Range Interpretation Comments AB TREPONEMA (test code = TREPAB) NONREACTIVE NONREACTIVE : *IS CONSENT FORM SIGNED FOR HIV TESTING? YAB HIV 1 15:00:00 Test Item Value Reference Range Interpretation Comments AB HIV 1 2 (test code = [id number]) NONREACTIVE : *IS CONSENT FORM SIGNED FOR HIV TESTING? YCBC W/AUTO [id number] 13:08:00 Test Item Value Reference Range Interpretation Comments WHITE BLOOD CELL (test code = WBC) 7.6 K/mm3 6.6-12.1 N RED BLOOD CELL (test code = RBC) 3.60 M/mm3 3.45-5.01 N HEMOGLOBIN (test code = HGB) 8.3 g/dL 10.7-13.9 L HEMATOCRIT (test code = HCT) 29.3 % 32.1-42.1 L MEAN CELL VOLUME (test code = MCV) 81 fL 84.1-94.8 L MEAN CELL HGB (test code = MCH) 23.1 pg 27-35 L MEAN CELL HGB CONCETRATION (test 28.3 gm/dL 32.2-34.1 L code = MCHC) RED CELL DISTRIBUTION WIDTH (test 16.0 % 12.4-16.5 N code = RDW) PLATELET COUNT (test code = PLT) 172 K/mm3 133-385 N IMMATURE PLATELET FRACTION (test 7.2 % 0.0-10.8 N code = IPF) MEAN PLATELET VOLUME (test code = 12.6 fl 9.1-12.7 N MPV) NEUTROPHIL % (test code = NT%) 74.3 % 56.5-79.4 N LYMPHOCYTE % (test code = LY%) 17.8 % 14.3-34.3 N MONOCYTE % (test code = MO%) 6.9 % 5.1-10.4 N EOSINOPHIL % (test code = EO%) 0.7 % 0.1-3.0 N BASOPHIL % (test code = BA%) 0.3 % 0.1-1.0 N NEUTROPHIL # (test code = NT#) 5.7 K/mm3 LYMPHOCYTE # (test code = LY#) 1.4 K/mm3 MONOCYTE # (test code = MO#) 0.5 K/mm3 EOSINOPHIL # (test code = EO#) 0.05 K/mm3 BASOPHIL # (test code = BA#) 0.0 K/mm3 RBC MORPHOLOGY REQUIRED (test code NORMAL NORMAL = RBCM) PLATELET MORPHOLOGY REQUIRED (test NORMAL NORMAL code = PLTMR)
--- NOTE | 2020-10-08 04:24 | EDPHYS ---
Physician Documentation [facility] Name: Stephanie South Age: 25 yrs Sex: Female : 1995 Arrival Date: 10/08/2020 Time: 03:20 Bed 23 Private MD: ED Physician Nina Velasco HPI: 10/08 04:22 This 25 yrs old Female presents to ER via Ambulatory with complaints of ma2 Toothache. 04:22 The patient presents with pain. Onset: The symptoms/episode began/occurred gradually, 1 ma2 week(s) ago. Associated signs and symptoms: Pertinent negatives: dysphagia, pain, redness in area. Severity of symptoms: At their worst the symptoms were moderate, in the emergency department the symptoms are unchanged. The patient has experienced a previous episode. Historical: - Allergies: 03:33 No Known Allergies; em - PMHx: 03:33 hypertension during ; em - PSHx: 03:33 Appendectomy; section; em - Immunization history:: Adult Immunizations up to date. - Social history:: Smoking status: Patient denies any tobacco usage or history of. - Family history:: not pertinent. ROS: 04:22 Constitutional: Negative for fever, chills, and weight loss. ma2 04:22 All other systems are negative. Exam: 04:22 Constitutional: This is a well developed, well nourished patient who is awake, alert, ma2 and in no acute distress. Head/Face: Normocephalic, atraumatic. Eyes: Pupils equal round and reactive to light, extra-ocular motions intact. Lids and lashes normal. Conjunctiva and sclera are non-icteric and not injected. Cornea within normal limits. Periorbital areas with no swelling, redness, or edema. ENT: right lower 2nd molar dental caries, Nares patent. No nasal discharge, no septal abnormalities noted. Tympanic membranes are normal and external auditory canals are clear. Oropharynx with no redness, swelling, or masses, exudates, or evidence of obstruction, uvula midline. Mucous membranes moist. Neck: Trachea midline, no thyromegaly or masses palpated, and no cervical lymphadenopathy. Supple, full range of motion without nuchal rigidity, or vertebral point tenderness. No Meningismus. Chest/axilla: Normal chest wall appearance and motion. Nontender with no deformity. No lesions are appreciated. Cardiovascular: Regular rate and rhythm with a normal S1 and S2. No gallops, murmurs, or rubs. Normal PMI, no JVD. No pulse deficits. Respiratory: Lungs have equal breath sounds bilaterally, clear to auscultation and percussion. No rales, rhonchi or wheezes noted. No increased work of breathing, no retractions or nasal flaring. Vital Signs: 03:30 BP 121 / 84; Pulse 77; Resp 18; Temp 99.0; Pulse Ox 98% on R/A; Weight 52.16 kg; Height em 4 ft. 11 in. (149.86 cm); Pain 7/10; 03:30 Body Mass Index 23.23 (52.16 kg, 149.86 cm) em MDM: 04:17 Patient medically screened. ma2 04:22 Differential diagnosis: dental caries, gingivitis, dental abscess, gingivostomatitis. ma2 Data reviewed: vital signs, nurses notes. Counseling: I had a detailed discussion with the patient and/or guardian regarding: the historical points, exam findings, and any diagnostic results supporting the discharge/admit diagnosis, the presence of at least one elevated blood pressure reading (>120/80) during this emergency department visit, the need for outpatient follow up. Response to treatment: the patient's symptoms have markedly improved after treatment. Administered Medications: No medications were administered Disposition Summary: 10/08/20 04:24 Discharge Ordered Location: Home ma2 Condition: Stable ma2 Diagnosis - Dental caries, unspecified ma2 Followup: ma2 - With: Private Physician - When: Tomorrow - Reason: Continuance of care Discharge Instructions: - Discharge Summary Sheet ma2 - Dental Caries, Adult ma2 Forms: - Medication Reconciliation Form ma2 - Thank You Letter ma2 - Antibiotic Education ma2 - Prescription Opioid Use ma2 Prescriptions: - Augmentin 875-125 mg Oral Tablet - take 1 tablet by ORAL route every 12 hours for 10 days; 20 tablet; Refills: 0, ma2 Product Selection Permitted - Diclofenac Sodium 75 mg Oral Tablet Sustained Release - take 1 tablet by ORAL route 2 times per day; 30 tablet; Refills: 0, Product ma2 Selection Permitted Signatures: Juan Jose Donahue RN RN em Alzahri, Mohammad, MD MD ma2
--- NOTE | 2020-10-08 04:24 | ER ---
Nurse's Notes [facility] Name: Stephanie South Age: 25 yrs Sex: Female : 1995 Arrival Date: 10/08/2020 Time: 03:20 Bed 23 Private MD: Diagnosis: Dental caries, unspecified Presentation: 10/08 03:30 Chief complaint: Patient states: abscess in bottom jaw for a few days, denies fever, em pain all in the right side of face. Coronavirus screen: Client denies travel out of the [place] in the last 14 days. Ebola Screen: Patient negative for fever greater than or equal to 101.5 degrees Fahrenheit, and additional compatible Ebola Virus Disease symptoms Patient denies exposure to infectious person. Patient denies travel to an Ebola-affected area in the 21 days before illness onset. No symptoms or risks identified at this time. Initial Sepsis Screen: Does the patient meet any 2 criteria? No. Patient's initial sepsis screen is negative. Does the patient have a suspected source of infection? No. Patient's initial sepsis screen is negative. Risk Assessment: Do you want to hurt yourself or someone else? Patient reports no desire to harm self or others. Onset of symptoms was October 08, 2020. 03:30 Method Of Arrival: Ambulatory em 03:30 Acuity: RHONDA 4 em Historical: - Allergies: 03:33 No Known Allergies; em - PMHx: 03:33 hypertension during ; em - PSHx: 03:33 Appendectomy; section; em - Immunization history:: Adult Immunizations up to date. - Social history:: Smoking status: Patient denies any tobacco usage or history of. - Family history:: not pertinent. Screenin:30 Abuse screen: Denies threats or abuse. Nutritional screening: No deficits noted. em Tuberculosis screening: No symptoms or risk factors identified. Fall Risk None identified. Assessment: 05:15 Reassessment: Patient and/or family updated on plan of care and expected duration. Pain ea level reassessed. Patient is alert, oriented x 3, equal unlabored respirations, skin warm/dry/pink. Discharge instruction given to patient verbalized the understanding of instruction. Pt left ED ambulatory tolerating well. Vital Signs: 03:30 BP 121 / 84; Pulse 77; Resp 18; Temp 99.0; Pulse Ox 98% on R/A; Weight 52.16 kg; Height em 4 ft. 11 in. (149.86 cm); Pain 7/10; 03:30 Body Mass Index 23.23 (52.16 kg, 149.86 cm) em ED Course: 03:20 Patient arrived in ED. es 03:30 Patient has correct armband on for positive identification. em 03:30 No provider procedures requiring assistance completed. Patient did not have IV access em during this emergency room visit. 03:33 Triage completed. em 03:33 Arm band placed on. em 04:13 Juan Jose Donahue, RN is Primary Nurse. em 04:17 Nina Velasco MD is Attending Physician. ma2 Administered Medications: No medications were administered Outcome: 04:24 Discharge ordered by . ma2 05:15 Discharged to home ambulatory, with family. ea 05:15 Condition: stable 05:15 Discharge instructions given to patient, Instructed on discharge instructions, follow up and referral plans. medication usage, Demonstrated understanding of instructions, follow-up care, medications, Prescriptions given X 2. 05:16 Patient left the ED. ea Signatures: Anneliese Gaytan Edgar, RN RN Katheryn Clay RN Nina Borges ea, MD MD ma2
[2020-10-08] MEDS ORDERED: AMOX/K CLAV 875 MG TAB ONE (05:04)
[2020-10-08] MEDS ORDERED: KETOROLAC 30 MG/ML INJ ONE (05:04)
[2020-10-08 19:10] VITALS: BP 121/84; TEMP 99; O2SAT 98
== END 2020-10-08 05:16 | disposition home or self-care (01) ==
LOC: ER 03:17
DX: K02.9 Dental caries, unspecified (principal)
CPT/HCPCS: 99282

== ENCOUNTER 2023-12-12 11:35 | Emergency (ER) | payer OTHER, SELFPAY ==
--- NOTE | 2023-12-12 12:51 | RAD REPORT ---
EXAM: Wrist Right 3 View HISTORY: [facility] MAIN PAIN Bed Name: [id number] COMPARISON: None TECHNIQUE: 3 views of the right wrist. FINDINGS: No evidence of acute fracture or dislocation. Joint alignment is maintained. No soft tissue swelling is seen. No significant degenerative changes are present. IMPRESSION: No evidence of acute osseous abnormality.
--- NOTE | 2023-12-12 13:30 | ER ---
Nurse's Notes [facility] Name: Stephanie South Age: 28 yrs Sex: Female : 1995 Arrival Date: 12/12/2023 Time: 11:35 Bed IW1 Private MD: Diagnosis: Sprain of carpal joint of right wrist Presentation: 12/11 12:08 Chief complaint: Patient states: about 6 days ago right wrist started to hurt. No fall tm6 or injury, just started to hurt. Now cannot pick things up, close the car door, etc. Left wrist is a little swollen. Hurts 10/10 when I move it. Coronavirus screen: Vaccine status: Patient reports being unvaccinated. Ebola Screen: Patient negative for fever greater than or equal to 101.5 degrees Fahrenheit, and additional compatible Ebola Virus Disease symptoms Patient denies exposure to infectious person. Patient denies travel to an Ebola-affected area in the 21 days before illness onset. No symptoms or risks identified at this time. Initial Sepsis Screen: Does the patient meet any 2 criteria? No. Patient's initial sepsis screen is negative. Does the patient have a suspected source of infection? No. Patient's initial sepsis screen is negative. Risk Assessment: Do you want to hurt yourself or someone else? Patient reports no desire to harm self or others. Onset of symptoms was December 06, 2023. 12:08 Method Of Arrival: Ambulatory tm6 12:08 Acuity: RHONDA 4 tm6 Triage Assessment: 12:09 General: Appears in no apparent distress. Behavior is calm, cooperative. Pain: tm6 Complains of pain in dorsal aspect of right wrist and palmar aspect of right wrist Pain currently is 0 out of 10 on a pain scale. at worst was 10 out of 10 on a pain scale. Pain began one week ago. EENT: No signs and/or symptoms were reported regarding the EENT system. Neuro: Level of Consciousness is awake, alert, obeys commands, Oriented to person, place, time, situation. Cardiovascular: Patient's skin is warm and dry. Respiratory: Airway is patent Respiratory effort is even, unlabored, Respiratory pattern is regular, symmetrical. GI: No signs and/or symptoms were reported involving the gastrointestinal system. Abdomen is flat, non-distended. : No signs and/or symptoms were reported regarding the genitourinary system. Derm: No signs and/or symptoms reported regarding the dermatologic system. Musculoskeletal: Circulation, motion, and sensation intact. Reports pain in dorsal aspect of right wrist and palmar aspect of right wrist since one week ago. hurts to move. CONTRACT CONSULTANT: 12:09 LMP 12/05/2023, unknown tm6 Historical: - Allergies: 12:09 No Known Allergies; tm6 - PMHx: 12:09 hypertension during ; tm6 - PSHx: 12:09 Appendectomy; section; tm6 - Immunization history:: Client reports having NOT received the Covid vaccine. - Infectious Disease History:: Denies. - Social history:: Smoking status: Patient denies any tobacco usage or history of. Patient/guardian denies using alcohol. Vital Signs: 12:07 BP 119 / 72; Pulse 62; Resp 19; Temp 97.4(TE); Pulse Ox 100% on R/A; MAP 84 mmHg; tm6 Weight 54.43 kg; Height 4 ft. 11 in. ; Pain 5/10; 12:07 Body Mass Index 24.24 (54.43 kg, 149.86 cm) tm6 12:07 Pain Scale: Adult tm6 ED Course: 11:38 Patient arrived in ED. im 12:09 Triage completed. tm6 12:09 Arm band placed on left wrist. tm6 12:16 Yoko Shaffer MD is Attending Physician. gb1 12:42 Wrist Right 3 View XRAY In Process Unspecified. EDMS 14:03 No provider procedures requiring assistance completed. Patient did not have IV access jl7 during this emergency room visit. Administered Medications: No medications were administered Outcome: 13:30 Discharge ordered by . gb1 14:03 Discharged to home ambulatory, jl7 14:03 Condition: stable 14:03 Discharge instructions given to patient, Instructed on discharge instructions, follow up and referral plans. medication usage, Demonstrated understanding of instructions, follow-up care, medications, Prescriptions given X 1, 14:03 Patient left the ED. jl7 Signatures: Dispatcher [employer] EDMS Moisés Sanchez RN RN jl7 Sugar Louie im Yoko Shaffer MD MD gb1 Gracia Flores RN RN tm6
--- NOTE | 2023-12-12 13:30 | EDPHYS ---
Physician Documentation [facility] Name: Stephanie South Age: 28 yrs Sex: Female : 1995 Arrival Date: 12/12/2023 Time: 11:35 Bed IW1 Private MD: ED Physician Yoko Shaffer HPI: 12/11 13:31 This 28 yrs old Female presents to ER via Ambulatory with complaints of Wrist gb1 Pain - right. 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 - Infectious Disease History:: Denies. - Social history:: Smoking status: Patient denies any tobacco usage or history of. Patient/guardian denies using alcohol. Exam: 13:31 Hand exam: ROM: full active range of motion, full passive range of motion, Circulation gb1 is intact in all extremities. Pulses: are normal with no appreciated deficits, Perfusion: the extremity is normally perfused throughout, pink, warm, with brisk capillary refill, Edema, is not appreciated, sensation intact. Compartment Syndrome exam of affected extremity: is normal. Tendon exam: specific tendon testing normal through active and passive range of motion Joints: All joints appear normal with full range of motion. Vital Signs: 12:07 BP 119 / 72; Pulse 62; Resp 19; Temp 97.4(TE); Pulse Ox 100% on R/A; MAP 84 mmHg; tm6 Weight 54.43 kg; Height 4 ft. 11 in. ; Pain 5/10; 12:07 Body Mass Index 24.24 (54.43 kg, 149.86 cm) tm6 12:07 Pain Scale: Adult tm6 MDM: 13:07 Patient medically screened. gb1 13:31 Data reviewed: radiologic studies, plain films. ED course: 28-year-old male with right gb1 wrist pain, no direct trauma no signs of fracture dislocation on x-ray. Recommend splint for comfort and NSAIDs for pain. I recommend an MRI of the wrist to rule out carpal tunnel or any tendon/nerve injury in 2 weeks if pain persists or worsens.. 12/11 12:16 Order name: Wrist Right 3 View XRAY; Complete Time: 12:53 gb1 Administered Medications: No medications were administered Disposition Summary: 12/12/23 13:30 Discharge Ordered Notes: Location: Home gb1 Condition: Stable gb1 Diagnosis - Sprain of carpal joint of right wrist gb1 Followup: gb1 - With: Private Physician - When: - Reason: Recheck today's complaints Discharge Instructions: - Discharge Summary Sheet gb1 - Wrist Sprain, Adult gb1 Forms: - Medication Reconciliation Form gb1 - Antibiotic Education gb1 - Prescription Opioid Use gb1 - Patient Portal Instructions gb1 - Leadership Thank You Letter gb1 Prescriptions: - Ibuprofen 800 mg Oral Tablet - take 1 tablet ORAL route every 8 hours As needed take with food; 30 tablet; gb1 Refills: 0, Product Selection Permitted Signatures: Dispatcher [employer] EDYoko Quispe MD MD gb1 Gracia Flores RN RN tm6
[2023-12-12 14:07] VITALS: BP 119/72; TEMP 97.4; O2SAT 100
== END 2023-12-12 14:03 | disposition home or self-care (01) ==
LOC: ER 11:35
DX: S63.511A Sprain of carpal joint of right wrist, initial encounter (principal)
CPT/HCPCS: 99283